=== PATIENT | male | born 1985 | race Caucasian/White ===

== ENCOUNTER 2016-05-06 16:54 | Emergency (ER) ==
[2016-05-06] MEDS ORDERED: NS 1,000 ML IV ONE (18:08)
[2016-05-06] MEDS ORDERED: ZOFRAN IV ONE (18:08)
--- NOTE | 2016-05-06 18:15 | PROVIDER DOCUMENTATION ---
HPI-Abdominal Pain/GI Problem - General Chief Complaint: N/V/D Stated Complaint: N/V/D Time Seen by Provider: 05/06/16 17:58 Source: patient Allergies/Adverse Reactions: Patient Allergies Allergy/AdvReac Type Severity Reaction Status Date / Time ketorolac tromethamine * Allergy Unknown Verified 04/02/16 01:00 [From Toradol] Penicillins Allergy Unknown Verified 04/02/16 01:00 Home Medications: Home Medication List Medication Instructions Recorded Confirmed Last Taken Type Ondansetron Odt [Zofran 8Mg Odt] 8 mg PO Q8H PRN PRN #20 tablet 05/06/16 Unknown Rx - History of Present Illness-ABD Nature of Presenting Problems: 30 y/o WM cp epigastric and ruq abdominal pain, associated with nausea, vomiting and diarrhea x 3 days. States the pain is worse before vomiting or BM, and then subsides afterwards. Denies fevers, reports fatigue. Denies sick contacts. Has not eaten until 2 hours ago adn ate a hot pocket. Has bee able to keep it down. Denies blood in the stool or vomit. Has had 10 episodes of vomiting and diarrhea daily Review of Systems - Adult - REVIEW OF SYSTEMS - ADULT Constitutional: reports: no symptoms reported. denies: chills, fever, fatique Eyes: reports: no symptoms reported. denies: blurred vision, double vision, eye pain Ears, Nose, Mouth & Throat: reports: no symptoms reported. denies: ear pain, nose pain, throat pain Cardiovascular: reports: no symptoms reported. denies: chest pain, palpitations Respiratory: reports: no symptoms reported. denies: cough, shortness of breath Gastrointestinal: reports: see HPI, abdominal pain, diarrhea, nausea, poor appetite, vomiting. denies: rectal bleeding Genitourinary: reports: no symptoms reported. denies: dysuria Musculoskeletal: reports: no symptoms reported. denies: bone pain, muscle aches Integumentary: reports: no symptoms reported. denies: rash Neurological: reports: no symptoms reported. denies: headache/migraines Psychiatric: reports: no symptoms reported Endocrine: reports: no symptoms reported Hematologic/Lymphatic: reports: no symptoms reported Allergic/Immunologic: reports: no symptoms reported All Other Systems: Reviewed and Negative Past History - Adult - PAST MEDICAL HISTORY-ADULT Review of Records: reports: Old Records Reviewed, Nursing Assessment Review, Medications Reviewed Major Childhood Illnesses: reports: denies history Cardiovascular: reports: denies history Respiratory: reports: denies history Gastrointestinal: reports: denies history Genitourinary: reports: denies history Musculoskeletal: reports: denies history Neurological: reports: denies history Endocrine/Immune: reports: denies history Other Conditions: reports: denies history - PRIOR SURGERIES/PROCEDURES Surgical/Procedure History: reports: reviewed, not pertinent - IMMUNIZATION STATUS Childhood Immunizations: See Nurse Assessment Flu Vaccine: See Nurse Assessment - FAMILY HISTORY Family History: reviewed, not pertinent - SOCIAL HISTORY Smoking: less than 1 pack/day Provider spent 3-5 mins advising pt. on dangers of tobacco.: Discussed manners to quit use, and f/u contacts for add'l counseling. Substance Use: none/never Alcohol Use Frequency: never Physical Exam-General - PHYSICAL EXAM-ADULT Initial Vital Signs Reviewed: Yes - CONSTITUTIONAL General Appearance: appears well, alert, no apparent distress - EYES Eyes: PERRL/EOMI, pink conjunctivae - HEAD, EARS, NOSE, MOUTH & THROAT HENMT: normocephalic/atraumatic, moist mucous membranes - NECK Neck: non-tender, full range of motion, supple, normal inspection. negative: lymphadenopathy - RESPIRATORY Respiratory: chest non-tender, lungs clear, normal breath sounds, no pleuratic chest pain, no respiratory distress, no accessory muscle use. negative: respiratory distress, decreased breath sounds, accessory muscle use, crackles, rales, rhonchi, wheezing - CARDIOVASCULAR Cardiovascular: normal peripheral pulses, tachycardia - GASTROINTESTINAL (ABDOMEN) Abdominal Exam: normal bowel sounds, soft, no organomegaly, no pulsatile mass, tenderness (epigastric). negative: abdominal bruit, abnormal bowel sounds, distended, guarding, rigid, rebound - MUSCULOSKELETAL Extremity: normal gait Peripheral Pulses: radial (R): 2+, radial (L): 2+ - SKIN Integumentary: normal color, normal turgor, warm/dry - NEUROLOGIC Neurologic: grossly normal, no motor/sensory deficits - PSYCHIATRIC Psych/Mental Status: normal mood/affect, normal thought content, normal thought process, oriented x 3 Progress - PLAN OF CARE/RESULTS Progress/Plan/Lab Results: Vital Signs Temp Pulse Pulse Pulse Pulse Resp BP 05/06/16 17:49 103 H 104 H 100 H 05/06/16 16:59 98.9 F 102 H 20 137/082 BP BP BP Pulse Ox 05/06/16 17:49 150/092 153/095 146/091 05/06/16 16:59 98 ketorolac tromethamine * [From Toradol] Allergy (Verified 04/02/16 01:00) Unknown Pt. states "it makes me see stuff" Penicillins Allergy (Verified 04/02/16 01:00) Unknown altered Mental Status No Home Medications 04/02/16 Dietary Diet NPO Start SatMay 06 1800 Laboratory 05/06/16 05/06/16 05/06/16 18:55 18:10 18:10 WBC 9.53 RBC 4.86 Hgb 14.6 Hct 43.3 MCV 89.1 MCH 30.0 MCHC 33.7 RDW Std Deviation 14.8 H Plt Count 400 MPV 9.5 Immature Gran % (Auto) 0.2 Neut % (Auto) 74.5 Lymph % (Auto) 16.8 L [place] % (Auto) 7.0 Eos % (Auto) 1.0 Baso % (Auto) 0.5 Immature Gran # (Auto) 0.02 Neut # (Auto) 7.09 H Lymph # (Auto) 1.60 [place] # (Auto) 0.67 H Eos # (Auto) 0.10 Baso # (Auto) 0.05 Sodium 135 L Potassium 3.7 Chloride 102 Carbon Dioxide 24 L Anion Gap 9 BUN 10 Creatinine 0.7 Estimated GFR/1.73 m2 > 60 BUN/Creatinine Ratio 14 Glucose 129 H Calculated Osmolality 271 Calcium 9.2 Total Bilirubin 0.20 AST 27 ALT 25 Alkaline Phosphatase 85 Total Protein 6.6 Albumin 4.3 Globulin 2.0 Albumin/Globulin Ratio 2.0 Amylase 27 Lipase 26 Urine Source CLEAN CATCH Urine Color YELLOW Urine Clarity CLEAR Urine pH 6.5 Ur Specific [place] 1.020 Urine Protein NEGATIVE Urine Ketones TRACE Urine Blood NEGATIVE Urine Nitrite NEGATIVE Urine Bilirubin NEGATIVE Urine Urobilinogen 4+(12 mg/dL) Urine WBC TRACE A Urine Glucose NEGATIVE Orders Category Date Time Status Saline Loc DIRECTED Care 05/06/16 18:00 Active NPO Diet 05/06/16 18:00 Active AMYLASE [CHEM] Stat Lab 05/06/16 18:10 Completed CBC WITH ELECTRONIC DIFF [HEME] Stat Lab 05/06/16 18:10 Completed COMPREHENSIVE METABOLIC PANEL [CHEM] Stat Lab 05/06/16 18:10 Completed LIPASE [CHEM] Stat Lab 05/06/16 18:[address] W/POSS RFLX CULT [URINALYSIS] Stat Lab 05/06/16 18:55 Results 0.9% Sodium Chloride Inj [Ns] 1,000 ml Med 05/06/16 18:08 Discontinued IV 999 mls/hr Ondansetron [Zofran] Med 05/06/16 18:08 Discontinued 8 mg IV NOW ONE Departure - Departure Time of Disposition Order: 19:26 DIAGNOSIS: Gastroenteritis Disposition: HOME 01 Certified Medical Emergency: Emergent Condition: Stable Additional Instructions: Follow up with Dr. Diaz, GI ED Follow Up Instructions: You have been treated by a care provider in the Emergency Department. These instructions are being provided to you so you can have an understanding of how to care for yourself upon discharge. Upon discharge from the Emergency Department, you are responsible for making arrangements for follow-up care by a physician of your choice. Take all prescribed medications as directed. Return to the Emergency Department immediately for any new or worsening symptoms. You may call the Physician Referral phone number at [phone] to obtain a list of Physicians who are taking new patients. Prescriptions: Ondansetron Odt [Zofran 8Mg Odt] 8 mg PO Q8H PRN PRN #20 tablet PRN Reason: Nausea Referrals: None,PCP [Primary Care Provider] - Joe Diaz MD [STAFF PHYSICIAN] - Attestation - Physician/ GERRI Attestation Patient care was provided by Advanced Practice Provider:: Yes Advanced Practice Provider:: Lucía Olivares Advanced Practice Provider documentation review:: The Mid-level provider documentation, treatment plan and medical decision making was reviewed by the physician who agrees with all treatment and medical decision making by the MLP.
[2016-05-06 18:36] LABS: MANUAL DIFF NEEDED? NO
[2016-05-06 18:43] LABS: BASO% 0.5 % (0.0-0.8); HEMATOCRIT 43.3 % (42.0-52.0); HEMOGLOBIN 14.6 g/dL (14.0-18.0); IMM GRAN# 0.02 X1000 (0.0-0.04); IMM GRAN% 0.2 % (0.0-0.5); LYMPH% 16.8 % (20.5-51.1); MCHC 33.7 g/dL (33-37); MCV 89.1 FL (81-99); MONO# 0.67 X1000 (0.11-0.59); MPV 9.5 FL (7.4-10.4); NEUT% 74.5 % (42.2-75.2); PLT 400 X1000 (130-400); RBC 4.86 XMIL (4.7-6.1)
[2016-05-06 19:00] LABS: URINE SOURCE CLEAN CATCH
[2016-05-06 19:03] LABS: AGAP 9; ALBUMIN 4.3 g/dL (3.5-5.0); ALKALINE PHOSPHATASE 85 U/L (32-122); AMYLASE 27 U/L (20-200); BUN 10 mg/dL (8-22); CALCIUM 9.2 mg/dL (8.8-10.2); CHLORIDE 102 mmol/L (98-107); COSMO 271; GOT 27 U/L (10-34); GPT 25 U/L (10-44); LIPASE 26 U/L (13-60); POTASSIUM 3.7 mmol/L (3.5-5.1); SODIUM 135 mmol/L (136-145); TCO2 24 mmol/L (25-35); TOTAL PROTEIN 6.6 g/dL (6.3-8.3)
[2016-05-06 19:25] LABS: BILIRUBIN URINE NEGATIVE (NEGATIVE); BLOOD URINE NEGATIVE (NEGATIVE); CLARITY CLEAR (CLEAR); COLOR YELLOW; GLUCOSE URINE NEGATIVE (NEGATIVE); LEUKOCYTES URINE TRACE (NEGATIVE); NITRITE URINE NEGATIVE (NEGATIVE); PH URINE 6.5; PROTEIN URINE NEGATIVE (NEGATIVE); UROBILINOGEN URINE 4+(12 mg/dL)
[2016-05-06 19:27] LABS: URINE CAST NONE SEEN /LPF; URINE CRYSTAL NONE SEEN /HPF; URINE CULTURE PL NEEDED? YES; URINE EPITHELIAL CELLS <10 /HPF (<10); URINE WBC <10 /HPF (<10)
[2016-05-06 19:34] VITALS: BP 147/93
== END 2016-05-06 19:57 | disposition home or self-care (01) ==
LOC: P.ED 16:54
DX: K52.9 Noninfective gastroenteritis and colitis, unspecified (principal); R11.2 Nausea with vomiting, unspecified; R19.7 Diarrhea, unspecified; R10.13 Epigastric pain; R10.11 Right upper quadrant pain; R00.0 Tachycardia, unspecified; R10.816 Epigastric abdominal tenderness; F17.210 Nicotine dependence, cigarettes, uncomplicated; Z71.6 Tobacco abuse counseling
CPT/HCPCS: 80053; 81001; 82150; 83690; 85025; 87088; 96361; 96374; J2405; J7030